=== PATIENT | female | born 1930 | race Caucasian/White ===

== ENCOUNTER 2016-03-29 13:45 | Outpatient (RCR) | payer OTHER | END 2016-04-11 | disposition home or self-care (01) | LOC: PTY 13:45 | DX: S72.002A Fracture of unspecified part of neck of left femur, initial encounter for closed fracture (principal) ==

== ENCOUNTER 2016-04-12 13:06 | Outpatient (RCR) | payer OTHER | END 2016-05-09 | disposition home or self-care (01) | LOC: PTY 13:06 | DX: S72.002A Fracture of unspecified part of neck of left femur, initial encounter for closed fracture (principal); X58.XXXA Exposure to other specified factors, initial encounter; Y93.9 Activity, unspecified; Y92.9 Unspecified place or not applicable ==

== ENCOUNTER 2016-05-30 13:43 | Outpatient (RCR) | payer OTHER | END 2016-06-09 | disposition home or self-care (01) | LOC: PTY 13:43 | DX: S72.002D Fracture of unspecified part of neck of left femur, subsequent encounter for closed fracture with routine healing (principal) ==

== ENCOUNTER 2016-06-15 12:55 | Outpatient (RCR) | payer OTHER | END 2016-07-09 | disposition home or self-care (01) | LOC: PTY 12:55 | DX: S72.002D Fracture of unspecified part of neck of left femur, subsequent encounter for closed fracture with routine healing (principal) ==

== ENCOUNTER 2016-07-20 14:00 | Outpatient (RCR) | payer OTHER | END 2016-08-09 | disposition home or self-care (01) | LOC: PTY 14:00 | DX: S72.002D Fracture of unspecified part of neck of left femur, subsequent encounter for closed fracture with routine healing (principal); X58.XXXD Exposure to other specified factors, subsequent encounter ==